=== PATIENT | male | born 1970 | race Caucasian/White ===

== ENCOUNTER 2021-03-29 15:12 | Day surgery (SDC) | payer BC ==
[2021-03-29] MEDS ORDERED: NA CHLORIDE 0.9% 500 ML ONE (16:06)
[2021-03-29] MEDS ORDERED: ONDANSETRON 4 MG/2 ML VIAL ONE ×2 (16:06→17:58)
[2021-03-29] MEDS ORDERED: MORPHINE 4 MG/ML SYR ONE (16:06)
[2021-03-29 16:20] LABS: Absolute Lymphocytes (CBC) 2.7 K/uL (0.7-4.9); Basophils % 0.8 % (0-1.3); Hematocrit 40.5 % (39.6-49.0); Lymphocytes % 21.2 % (15.3-44.8); MPV 7.1 fL (7.6-11.3); RBC Red Blood Cell Count 4.65 M/uL (4.33-5.43)
--- NOTE | 2021-03-29 16:20 | ER ---
Nurse's Notes [facility] Name: Conner Vang Age: 50 yrs Sex: Male : 1970 Arrival Date: 03/29/2021 Time: 15:17 Bed 7 Private MD: Diagnosis: Torsion of testis, unspecified Presentation: 03/29 15:31 Chief complaint: Patient states: Woke Monday at 0200 with right testicle pain that jl7 radiated to right side of chest, no swelling then swelling started today, had US and they sent me here. Coronavirus screen: Client denies travel out of the [place] in the last 14 days. At this time, the client does not indicate any symptoms associated with coronavirus-19. Ebola Screen: No symptoms or risks identified at this time. Initial Sepsis Screen: Does the patient meet any 2 criteria? No. Patient's initial sepsis screen is negative. Does the patient have a suspected source of infection? No. Patient's initial sepsis screen is negative. Risk Assessment: Do you want to hurt yourself or someone else? Patient reports no desire to harm self or others. Onset of symptoms was March 28, 2021. Care prior to arrival: None. 15:31 Method Of Arrival: Ambulatory 7 15:31 Acuity: JASON 2 jl7 Triage Assessment: 15:34 General: Appears in no apparent distress. uncomfortable, Behavior is calm, cooperative, jl7 appropriate for age. Pain: Complains of pain in right testicle Pain radiates to anterior aspect of right upper chest Pain currently is 4 out of 10 on a pain scale. Pain began 1 day ago. Is continuous. Neuro: Level of Consciousness is awake, alert, obeys commands, Oriented to person, place, time, situation. Cardiovascular: Patient's skin is warm and dry. Respiratory: Airway is patent Respiratory effort is even, unlabored, Respiratory pattern is regular, symmetrical. GI: Reports nausea. : Swelling noted on scrotum Denies burning with urination, pain with urination. Derm: Skin is pink, warm \T\ dry. Historical: - Allergies: 15:34 PENICILLINS; jl7 - Home Meds: 15:34 Statin [Active]; jl7 - PMHx: 15:34 High cholesterol; jl7 - PSHx: 15:34 None; jl7 - Immunization history:: Adult Immunizations up to date, Client reports receiving the 2nd dose of the Covid vaccine. - Social history:: Smoking status: Patient reports the use of cigarette tobacco products, smokes one pack cigarettes per day. Screenin:08 Abuse screen: Denies threats or abuse. Denies injuries from another. Nutritional jl7 screening: No deficits noted. Tuberculosis screening: No symptoms or risk factors identified. Fall Risk IV access (20 points). Total Bryson Fall Scale indicates No Risk (0-24 pts). Assessment: 15:40 Reassessment: Dr. Edwards, Urology, at bedside assessing pt. jl7 16:08 Reassessment: JULIANO Diaz at bedside to transport pt to OR. jl7 Vital Signs: 15:31 BP 145 / 90; Pulse 61; Resp 17; Temp 98.5; Pulse Ox 100% on R/A; Weight 64.41 kg; jl7 Height 5 ft. 9 in. (175.26 cm); Pain 4/10; 15:31 Body Mass Index 20.97 (64.41 kg, 175.26 cm) jl7 ED Course: 15:17 Patient arrived in ED. mr 15:17 Jag Patel, JULIANO is Primary Nurse. jl7 15:17 Sharan Huitron MD is Attending Physician. kdr 15:33 Triage completed. jl7 15:34 Arm band placed on right wrist. jl7 16:05 Initial lab(s) drawn, by ny, sent to lab. Inserted saline lock: 20 gauge in left hand, jl7 using aseptic technique. Blood collected. 16:08 Patient has correct armband on for positive identification. Placed in gown. Bed in low jl7 position. Call light in reach. Side rails up X2. Pulse ox on. NIBP on. Warm blanket given. 16:15 No provider procedures requiring assistance completed. Patient admitted, IV remains in jl7 place. intact, No redness/swelling at site. 16:18 Alok Edwards MD is Hospitalizing Provider. kdr Administered Medications: 16:05 Drug: Zofran (Ondansetron) 4 mg Route: IVP; Site: left hand; jl7 16:10 Follow up: Response: No adverse reaction jl7 16:05 Drug: NS 0.9% 500 ml Route: IV; Rate: bolus; Site: left hand; jl7 16:35 Follow up: IV Status: Infusion continued upon admission jl7 16:07 Drug: morphine 4 mg Route: IVP; Site: left hand; jl7 16:10 Follow up: Response: No adverse reaction; Pain is decreased jl7 Outcome: 16:15 Discharged to home ambulatory. jl7 16:15 Condition: stable 16:15 Discharge instructions given to patient, Instructed on the need for admit, Demonstrated understanding of instructions. 16:19 Decision to Hospitalize by Provider. kdr 16:34 Patient left the ED. [facility] er Signatures: Sharan Huitron MD MD kdr Rivera, Mary mr Leal, Jahala RN RN jl7 Corrections: (The following items were deleted from the chart) 15:36 15:31 BP 145 / 90; Pulse 61bpm; Resp 17bpm; Pulse Ox 100% RA; Temp 9.5F; 64.41 kg; jl7 Height 5 ft. 9 in.; BMI: 20.9; Pain 4/10; jl7
--- NOTE | 2021-03-29 16:20 | EDPHYS ---
Physician Documentation [facility] Name: Conner Vang Age: 50 yrs Sex: Male : 1970 Arrival Date: 03/29/2021 Time: 15:17 Bed 7 Private MD: ED Physician Sharan Huitron HPI: 03/29 15:29 This 50 yrs old Male presents to ER via Unassigned with complaints of Scrotal kdr Pain, Acute Onset. 15:29 The patient presents with scrotal pain, of the right side, with swelling, without kdr erythema. Onset: The symptoms/episode began/occurred suddenly, 02:00 AM yesterday morning. Modifying factors: The symptoms are alleviated by Upright position, the symptoms are aggravated by movement, pressure, supine. Associated signs and symptoms: Pertinent positives: nausea, Right chest pain. Severity of symptoms: At their worst the symptoms were mild, moderate, just prior to arrival, in the emergency department the symptoms are unchanged. The patient has not experienced similar symptoms in the past. The patient was sent for outpatient US by PA for Dr. Caldera. Historical: - Allergies: 15:34 PENICILLINS; jl7 - Home Meds: 15:34 Statin [Active]; jl7 - PMHx: 15:34 High cholesterol; jl7 - PSHx: 15:34 None; jl7 - Immunization history:: Adult Immunizations up to date, Client reports receiving the 2nd dose of the Covid vaccine. - Social history:: Smoking status: Patient reports the use of cigarette tobacco products, smokes one pack cigarettes per day. ROS: 15:29 Constitutional: Negative for fever, chills, and weight loss, Eyes: Negative for injury, kdr pain, redness, and discharge, ENT: Negative for injury, pain, and discharge, Neck: Negative for injury, pain, and swelling, Cardiovascular: Negative for chest pain, palpitations, and edema, Respiratory: Negative for shortness of breath, cough, wheezing, and pleuritic chest pain, Abdomen/GI: Negative for abdominal pain, nausea, vomiting, diarrhea, and constipation, Back: Negative for injury and pain, MS/Extremity: Negative for injury and deformity, Skin: Negative for injury, rash, and discoloration, Neuro: Negative for headache, weakness, numbness, tingling, and seizure activity. Psych: Negative for depression, anxiety, suicide ideation, homicidal ideation, and hallucinations, Allergy/Immunology: Negative for hives, rash, and allergies, Endocrine: Negative for neck swelling, polydipsia, polyuria, polyphagia, and marked weight changes, Hematologic/Lymphatic: Negative for swollen nodes, abnormal bleeding, and unusual bruising. 15:29 : Positive for testicular pain of the right testicle. Exam: 15:29 Constitutional: This is a well developed, well nourished patient who is awake, alert, kdr and in no acute distress. 15:29 : Male external genitalia: tenderness, of the right testicle is noted, that is moderate, that is severe. 16:15 ECG was reviewed by the Attending Physician. kdr Vital Signs: 15:31 BP 145 / 90; Pulse 61; Resp 17; Temp 98.5; Pulse Ox 100% on R/A; Weight 64.41 kg; jl7 Height 5 ft. 9 in. (175.26 cm); Pain 4/10; 15:31 Body Mass Index 20.97 (64.41 kg, 175.26 cm) jl7 MDM: 15:29 Data reviewed: vital signs, nurses notes, lab test result(s), radiologic studies. kdr Counseling: I had a detailed discussion with the patient and/or guardian regarding: the historical points, exam findings, and any diagnostic results supporting the discharge/admit diagnosis, lab results, radiology results. Physician consultation: Alok Edwards MD was called at 14:20, was contacted at 14:20, regarding consult, patient's condition, and will see patient in ED, immediately. 16:19 Patient medically screened. [facility] 03/29 15:29 Order name: CBC with Diff [facility] 03/29 15:29 Order name: Chem 7 [facility] 03/29 15:29 Order name: Urine Culture kdr EC:15 Rate is 68 beats/min. Rhythm is regular, Sinus Rhythm with No ectopy. QRS [place] is kdr Normal. DE interval is normal. QRS interval is normal. QT interval is normal. Clinical impression: NSR w/ Non-specific ST/T Changes. Administered Medications: 16:05 Drug: Zofran (Ondansetron) 4 mg Route: IVP; Site: left hand; 7 16:10 Follow up: Response: No adverse reaction jl7 16:05 Drug: NS 0.9% 500 ml Route: IV; Rate: bolus; Site: left hand; jl7 16:35 Follow up: IV Status: Infusion continued upon admission jl7 16:07 Drug: morphine 4 mg Route: IVP; Site: left hand; 7 16:10 Follow up: Response: No adverse reaction; Pain is decreased jl7 Disposition Summary: 03/29/21 16:19 Hospitalization Ordered Hospitalization Status: Observation kdr Provider: Alok Edwards Location: Operating Room kdr Condition: Fair kdr Problem: new kdr Symptoms: have improved kdr Bed/Room Type: Standard kdr Room Assignment: kdr Diagnosis - Torsion of testis, unspecified kdr Discharge Instructions: - Discharge Summary Sheet mt Forms: - Medication Reconciliation Form kdr - SBAR form mt Signatures: Dispatcher [employer] Sharan Brewer MD MD kdr Jag Patel RN RN jl7
[2021-03-29 16:38] LABS: BUN Blood Urea Nitrogen 10 mg/dL (7-18); Bicarbonate 27 mmol/L (21-32); Glucose Level 90 mg/dL (74-106); Potassium 3.7 mmol/L (3.5-5.1); Sodium Level 138 mmol/L (136-145)
[2021-03-29 16:46] VITALS: O2SAT 100
[2021-03-29] MEDS ORDERED: CLINDAMYCIN INJ 600 MG in NA CHLORIDE 0.9% 50 ML IV ONE (17:00)
--- NOTE | 2021-03-29 17:07 | CON ---
Date of Consultation: 03/29/2021 Reason For Consultation: Suspected right testicular torsion. History Of Present Illness: Mr. Clark is a 50-year-old gentleman, with 2 children, with hypercholesterolemia, who developed severe, 7/10 in intensity, right testicular pain on Monday nig /Monday morning at 2 a.m. Despite the severity of the pain, he ignored it and was able to proceed through the rest of his day noting he was more comfortable if he was standing than if he was lying do wn or sitting. The pain persisted through into Monday night before he was able to sosa sufficient relief to sleep without any issues. The following morning, he awoke with persistence of the pain in a more mild-moderate nature, but this time associated with some nausea and the pain radiated into his right lower quadrant in the periumbilical region. As a result, he elected to proceed to the emergen cy department for evaluation. He denies any trauma or that this had occurred previously. He denied any associated dysuria or other urogenital issue. He notes that he has 2 children and is not worried about saving the testicle because he does not want to have any additional children. Past Medical History: Hypercholesterolemia. Past Surgical History: None. Allergies: TO PENICILLIN, ANAPHYLAXIS. Physical Examination: General: Well-appearing, in no acute distress, but standing and somewhat pacing at the bedside. No dyspnea or signs of respiratory distress. Abdomen: Soft, nontender, nondistended. Genitalia: Phallus circumcised without lesion or discharge, right hemiscrotum asymmetrically enlarge d and mildly erythematous relative to the left, exquisitely tender to attempts at gentle palpation. Left testis normal and without palpable mass, lesion, and nontender. No crepitus or sign of acute in flammation or infection. Laboratory Data: Scrotal ultrasound images directly reviewed and I noted that the right testicle was essentially completely without any evidence of Doppler flow while normal flow was present within the left testis. Assessment And Recommendations: This is a 50-year-old gentleman with hypercholesterolemia, who is ma rried with 2 children, not desiring any additional, with right testicular torsion present likely sinc e 2 a.m. Monday/over 38 hours of torsion. I explained to the patient that while he would rat her simply have the testis removed if there is any equivocality about whether it might survive if spa red, I explained the testis had more than simply reproductive function, that it also carried hormonal function, which could be impacted by its loss. Though if equivocal as to its salvageability, we asia l take his wishes into account and remove the testis to avoid his lack of desire for repeat operative exploration. As he has not eaten anything since 5 a.m. this morning and has only had coffee and eliz e water between 7 and 9 a.m., this should be adequate for proceeding surgically at this time. As a r esult, we will request the Emergency Department to obtain an EKG and send necessary blood work preope rative preparation stat and the OR team has been called in emergently for planned scrotal exploration with right detorsion, possible orchiectomy, and left orchiopexy. SUSAN/STEVEL Voice ID: [id number] Report ID: [id number]
[2021-03-29] MEDS ORDERED: Ringers Lactate 1,000 ML IV ONE (17:41)
[2021-03-29] MEDS ORDERED: propofoL 200 MG/20 ML VIAL IV ONE (17:44)
[2021-03-29] MEDS ORDERED: LIDOCAINE 2% MPF 5 ML VIAL ONE (17:45)
[2021-03-29] MEDS ORDERED: FENTANYL CITR 100 MCG/2 ML ONE (17:45)
[2021-03-29] MEDS ORDERED: KETOROLAC 30 MG/ML INJ ONE (17:58)
[2021-03-29] MEDS ORDERED: dexAMETHasone 10 MG/ML VIAL ONE (17:58)
[2021-03-29] MEDS ORDERED: GLYCOPYRROLATE 0.2 MG/ML SYR ONE (18:08)
[2021-03-29] MEDS ORDERED: BACITRACIN OINTMENT 15 GM TUBE TOP ONE (18:47)
[2021-03-29] MEDS ORDERED: CODEINE 30MG/APAP 300MG TAB PO PRN (18:53)
--- NOTE | 2021-03-29 19:33 | OP ---
Surgeon: LISETTE GOEL Preoperative Diagnosis: Right testicular torsion. Postoperative Diagnosis: Right testicular torsion. Principle Procedures: 1. Right scrotal exploration. 2. Detorsion of the right testis-540 degrees 3. Left scrotal orchiopexy. Indication For Procedure: Mr. Clark presented to ultrasound this afternoon, referred by his nurse practitioner likely primary care, who sent him over for evaluation. The Ultrasonography Department identified testicular torsion or lack of blood flow and referred him to the emergency department. I was immediately contacted and saw the patient within 20 minutes of being contacted to find significant swelling and tenderness of the right hemiscrotum and review of the ultrasound revealed complete absence of flow. This had been the case for over 36 hours. As a result, I counseled the patient appropriately about the potential loss of the testis, and he expressed he was completely not concerned about that. He would rather lose the testis then potentially try to spare it and have to return to the OR later to manage if it fails to survive. 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 Procedure In Detail: The patient was consented in the preoperative holding area before being transferred to operative suite where general anesthesia was induced. He was given clindamycin 600 mg IV antimicrobial prophylaxis and pneumo boots were provided for DVT prophylaxis. His genitalia were shaved, prepped using Betadine, and draped in standard fashion. The case was begun by identifying a Haydee line incision in the right hemiscrotum horizontally and incising it with a 15 blade deepening through the subcutaneous tissues and dartos layers with electrocautery. When the tunica vaginalis was visualized, it was sharply divided to enter the intrascrotal contents and the testis was visualized. I delivered the testis into the opening and it was dusky and hemorrhagic in appearance. I then detorsed the testis 540 degrees until the cord was no longer twisted. The entirety of the testis unfortunately was dusky and hemorrhagic with no areas of preserved flow to the testis with viable parenchyma noted at this time. So, I wrapped the testis in a warm saline soaked lap sponge and turned my attention to his left hemiscrotum. I then divided the median raphae sharply to enter into the left hemiscrotum after dividing the tunica vaginalis on the left side. I was then able to deliver the testis via the median raphae into the hiatus previously created and visualized it. There was no evidence of torsion at this point, and so I utilized 4-0 PDS suture to pex the testis to the left lateral wall of the scrotum and the left inferior border of the left hemiscrotum. The testis was then irrigated with saline and delivered back into the left hemiscrotum and the sutures were tied down to pex it in place. I then closed the median raphae using 3-0 Vicryl suture in a running fashion and in a two-layer closure. I then turned my attention back to the testis, which has set now for over 15 or 20 minutes in a saline soaked sponge in a detorsed position allowing recovery of blood flow if possible. Unfortunately, despite all the time allowed, the testis remained dusky and hemorrhagic with no sign of viability. As a result, I then sharply divided the layers of the tunica vaginalis overlying the cord structures to identify the vas deferens, which was ligated using 3-0 Vicryl suture. This was then divided using Bovie electrocautery. The cord structures proper, then were ligated using a 2-0 silk stick tie and then separately ligated again with a repeat 2-0 hand tie. Once this was completed, the testicle was then divided from the remaining cord structures sharply using Bovie electrocautery and the testicle was sent for pathologic analysis. A careful search was done for any signs of bleeding from the cord stump, and when no bleeding was noted, the cord was allowed to retract into the inguinal canal on the right side. I then copiously irrigated the scrotum and pinpoint fulgurated any oozing vessels seen. I then closed the dartos layers using 3-0 Vicryl suture before closing the skin using 4-0 chromic sutures dipped in bacitracin. A fluff gauze and scrotal support were then applied and the patient was awakened from general anesthesia before being transferred to a stretcher and then to the recovery room in good condition. Complications: None. Discharge Disposition: He should follow up in the Urology Clinic within the next 1-3 weeks for interval assessment of his scrotum following the orchiopexy on the left side and the orchiectomy on the right side. SUSAN/MODL Voice ID: [id number] Report ID: [id number] MTDD
[2021-03-29] MEDS ORDERED: CODEINE 30MG/APAP 300MG TAB ONE (19:38)
[2021-03-29 20:05] VITALS: BP 128/96; TEMP 98.5
--- NOTE | 2021-03-30 11:47 | EKG ---
Test Date: 2021-03-29 Test Time: 16:05:32 Business Data Analyst: BRAEDEN MEASUREMENT RESULTS: Intervals: Rate: 68 LA: 138 QRSD: 82 QT: 386 QTc: 410 [place]: P: 42 LA: 138 QRS: 6 T: 49 INTERPRETIVE STATEMENTS: Sinus rhythm with premature supraventricular complexes RSR' or QR pattern in V1 suggests right ventricular conduction delay Borderline ECG No previous ECG available for comparison Electronically Signed On 03-30-21 11:46:59 CDT by Chu Castro
== END 2021-03-29 20:03 | disposition home or self-care (01) ==
LOC: ER 15:12 → DS 16:17
PROVIDERS: ATTEND Urology
PROC: 0VB90ZZ Excision of Right Testis, Open Approach (ICD-10-PCS; 2021-03-29)
PROC: 0VQB0ZZ Repair Left Testis, Open Approach (ICD-10-PCS; principal; 2021-03-29 15:30)
DX: N44.00 Torsion of testis, unspecified (principal)
CPT/HCPCS: 54640; 54522; 93005; 85025; 80048; 36415; 88305; 96375; 96374; 99284; J2704; J3010; J1100; J7120; J7040; J2405 ×2

== ENCOUNTER 2023-01-02 08:12 | Day surgery (SDC) | payer BC ==
[2023-01-02] MEDS ORDERED: Ringers Lactate 1,000 ML IV ONE (10:41)
[2023-01-02] MEDS ORDERED: propofoL 200 MG/20 ML VIAL IV ONE (12:00)
[2023-01-02] MEDS ORDERED: LIDOCAINE 1% MPF 5 ML VIAL ONE (12:00)
[2023-01-02 13:15] VITALS: TEMP 97.1; O2SAT 100
[2023-01-02 13:26] VITALS: BP 128/88
--- NOTE | 2023-01-02 15:48 | EKG ---
Test Date: 2023-01-02 Test Time: 08:51:20 Public Address System Operator: LESLEY MEASUREMENT RESULTS: Intervals: Rate: 71 NE: 144 QRSD: 76 QT: 368 QTc: 399 [place]: P: 56 NE: 144 QRS: 6 T: 56 INTERPRETIVE STATEMENTS: Normal sinus rhythm Indeterminate axis RSR' or QR pattern in V1 suggests right ventricular conduction delay Borderline ECG Compared to ECG 03/29/2021 16:05:32 Indeterminate axis now present Atrial premature complex(es) no longer present Electronically Signed On 01-02-23 15:48:06 CDT by Iglesia Lang
== END 2023-01-02 13:25 | disposition home or self-care (01) ==
LOC: OR 08:12
PROVIDERS: ATTEND Surgery
PROC: 0DBF8ZX Excision of Right Large Intestine, Via Natural or Artificial Opening Endoscopic, Diagnostic (ICD-10-PCS; 2023-01-02)
PROC: 0DBH8ZX Excision of Cecum, Via Natural or Artificial Opening Endoscopic, Diagnostic (ICD-10-PCS; principal; 2023-01-02 12:15)
DX: Z12.11 Encounter for screening for malignant neoplasm of colon (principal); K64.8 Other hemorrhoids; D12.2 Benign neoplasm of ascending colon; D12.0 Benign neoplasm of cecum
CPT/HCPCS: 45380; 93005; 80048; 36415; 88305; J2704; J2001; J7120